=== PATIENT | male | born 1975 | race Caucasian/White ===

== ENCOUNTER → 2022-04-27 15:39 | Outpatient (CLI) | payer OTHER, SELFPAY ==
--- NOTE | 2022-04-27 | DI.MRI.S_ITS ---
PROCEDURE: MR HIP LT WO CON INDICATIONS: Pain in left leg TECHNIQUE: Noncontrast coronal T1 spin echo and STIR through the bony pelvis. Coronal and axial T2 fast spin echo with fat saturation, sagittal T1 spin echo, and oblique axial T2 fast spin echo with fat saturation through the hip. COMPARISON: None. FINDINGS: Image quality: Excellent. Bones and joints: Symmetric appearing [id number] bilateral hip joint osteoarthritic changes are seen with superior joint space narrowing and subchondral sclerosis. Prominence of left superior anterior femoral head neck junction is seen with subcortical cystic area which can be seen associated with CAM type femoral acetabular impingement. No intraosseous lesions or fractures. No avascular necrosis of the femoral heads. The visualized lower lumbar spine appears normally aligned. Tendons and ligaments: Distal left gluteus medius and minimus tendinosis at their insertion on greater trochanter is seen , without associated muscle atrophy. The nearby proximal iliotibial band also appears intact. The iliopsoas tendon appears intact, without adjacent bursal fluid collections or evidence for impingement syndrome. The origin of the hamstring tendon is intact at the ischial tuberosity, as well as the associated sacrotuberous ligament. The straight and reflected heads of the rectus femoris muscle origin appear intact, as well as the conjoint tendon. The ligamentum teres appears intact where visualized. Labrum and cartilage: There is thinning of articulating cartilage in left femoral head. Subtle signal abnormality and contour irregularity involving superior anterior left hip labrum at 12 to 1 o'clock position is seen suggestive of superior anterior labral tear. The alpha angle of the femur is within normal limits at less than 55 degrees. Soft tissues: Visualized muscles demonstrate normal bulk and internal signal. Quadratus femoris muscle demonstrates no internal edema to suggest ischiofemoral impingement. The proximal sciatic neurovascular bundle appears normal adjacent to the hamstring tendons. No free pelvic fluid. Bladder wall thickness is normal. Genitourinary structures and bowel loops appear normal where visualized. IMPRESSION: 1. Symmetric appearing [id number] bilateral hip joint osteoarthritis. No pelvic or hip fracture. No hip dislocation. No evidence of avascular necrosis of femoral heads. 2. Prominence of superior anterior left femoral head neck junction with subcortical cystic area which can be seen associated with CAM type femoral acetabular impingement. 3. Distal left gluteus medius and minimus tendinosis. No other muscle or tendon signal abnormalities. 4. Suggestion of superior anterior left hip labral tear at 12 to 1 o'clock position. Dictated by: Rodriguez Meredith M.D. on 04/27/2022 at 16:14 Approved by: Rodriguez Meredith M.D. on 04/27/2022 at 16:22
--- NOTE | 2022-04-27 | DI.MRI.S_ITS ---
PROCEDURE: MR PELVIS WO CON INDICATIONS: pain in left hip [place] area TECHNIQUE: Noncontrast axial and oblique coronal T1 spin echo and STIR through the sacroiliac joints. COMPARISON: None. FINDINGS: Image quality: Excellent. Bones: There is mild bilateral sacroiliac joint space narrowing. No adjacent bone marrow edema to suggest active sacroiliitis. No bony ankylosis. No suspicious marrow space occupying lesions. Soft tissues: No presacral masses. Rectum appears normal in caliber and wall thickness. No pathologic free pelvic fluid. IMPRESSION: 1. Mild bilateral sacroiliac joint osteoarthritis. No MR evidence of active sacroiliitis. No bony ankylosis. No fracture or dislocation. 2. No gross presacral soft tissue abnormalities. Dictated by: Rodriguez Meredith M.D. on 04/27/2022 at 16:22 Approved by: Rodriguez Meredith M.D. on 04/27/2022 at 16:24
--- NOTE | 2022-04-27 | DI.MRI.S_ITS ---
PROCEDURE: MR LUMBAR SPINE WO CON INDICATIONS: PAIN IN LEFT HIP TECHNIQUE: Noncontrast sagittal T1 spin echo and T2 fast echo, sagittal STIR, and T2 fast spin echo through the lumbar spine. In cases with scoliosis, additional coronal T2 fast spin echo may be performed. COMPARISON: None. FINDINGS: Image quality: Excellent. Alignment and Curvature: There is normal bony alignment. Bone Marrow: Marrow is of normal overall signal. No acute vertebral body compression fractures. Spinal Cord: Conus medullaris terminates at the L1-2 level. Visualized cord demonstrates normal signal and size. Paraspinous Soft Tissues: No paravertebral masses. T12-L1: Normal appearance. L1-L2: Normal appearance. L2-L3: Normal appearance. L3-L4: Normal appearance. L4-L5: Moderate facet arthrosis. Mild broad-based disc bulge. Mild bilateral neural foraminal narrowing. L5-S1: Posterior central/right subarticular protrusion, contacting the right S1 nerve root. Mild right neural foraminal narrowing. IMPRESSION: 1. Posterior central/right subarticular protrusion at L5-S1, contacting the exiting right S1 nerve root. Additionally, there is mild right neural neural foraminal narrowing. 2. Mild bilateral neural foraminal narrowing at L4-5 due to facet arthrosis. Dictated by: Nils Espinosa M.D. on 04/27/2022 at 17:03 Approved by: Nils Espinosa M.D. on 04/27/2022 at 17:06
== END ==
PROVIDERS: PCP Student in an Organized Health Care Education/Training Program; Referring Provider Student in an Organized Health Care Education/Training Program; Visit Provider Student in an Organized Health Care Education/Training Program
DX: M47.816 Spondylosis without myelopathy or radiculopathy, lumbar region (principal); M51.27 Other intervertebral disc displacement, lumbosacral region; M48.061 Spinal stenosis, lumbar region without neurogenic claudication; M48.07 Spinal stenosis, lumbosacral region; M16.0 Bilateral primary osteoarthritis of hip; M46.1 Sacroiliitis, not elsewhere classified; M25.552 Pain in left hip; M79.605 Pain in left leg
CPT/HCPCS: 72148; 72195; 73721